=== PATIENT | female | born 1960 | race Caucasian/White ===

== ENCOUNTER 2017-01-03 23:27 | Emergency (ER) | payer BC ==
[2017-01-03 23:51] VITALS: BP 190/121
[2017-01-03] MEDS ORDERED: diphenhydrAMINE 50 MG Cap PO ONE (23:58)
--- NOTE | 2017-01-04 00:02 | EDM.PDOC ---
ED HPI GENERAL MEDICAL PROBLEM - General Chief Complaint: Allergic Reaction Stated Complaint: REACTION TO ANTIBIOTIC Time Seen by Provider: 01/03/17 23:53 - History of Present Illness INITIAL COMMENTS - FREE TEXT/NARRATIVE: HISTORY AND PHYSICAL: History of present illness: The patient is a 56-year-old female who presents with feeling flushed in the face after starting Keflex today for a UTI. The patient says she has had history of UTIs and self diagnosed herself and her daughter who is a physician called in a prescription for the Keflex today. She started taking the antibiotics today. She does not have a rash or itching she has no shortness of breath no swelling but she was concerned about the flushing being an early reaction. She took no medications for the flushing prior to coming to the ER Review of systems: As per history of present illness and below otherwise all systems reviewed and negative. Past medical history: As per history of present illness and as reviewed below otherwise noncontributory. Surgical history: As per history of present illness and as reviewed below otherwise noncontributory. Social history: No reported history of drug or alcohol abuse. Family history: As per history of present illness and as reviewed below otherwise noncontributory. Physical exam: Gen.: Well-developed well-nourished female who speaks clearly and easily in the ED and vital signs have been reviewed by me. She seems somewhat anxious in the room. HEENT: Atraumatic, normocephalic, pupils reactive, negative for conjunctival pallor or scleral icterus, mucous membranes moist, throat clear, neck supple, nontender, trachea midline. No facial swelling or oropharyngeal swelling is appreciated Lungs: Clear to auscultation, breath sounds equal bilaterally, chest nontender. Heart: S1S2, regular rate and rhythm no overt murmurs Abdomen: Soft, nondistended, nontender. NABS Skin: No evidence of any rashes or lesions are seen and turgor is normal. No urticaria is appreciated Genitourinary: Deferred. Rectal: Deferred. Extremities: Atraumatic, negative for cords or calf pain. Neurovascular unremarkable. Neuro: Awake, alert, oriented. Cranial nerves II through XII unremarkable. Cerebellum unremarkable. Motor and sensory unremarkable throughout. Exam nonfocal. Diagnostics: [] Therapeutics: Benadryl I discussed with the patient that her experienced flushing is not truly an allergic reaction but I did offer to change her antibiotics which she is declining at this time. I recommended taking Benadryl for the next 24 hours and if the symptoms worsen to return to the ER for further treatment. Impression: Facial flushing Definitive disposition and diagnosis as appropriate pending reevaluation and review of above. - Related Data Allergies Allergy/AdvReac Type Severity Reaction Status Date / Time caffeine Allergy Tachycardia Verified 03/17/16 11:58 codeine Allergy Tachycardia Verified 03/17/16 11:58 Seasonal allergies Allergy Other Uncoded 03/17/16 11:58 Home Meds: Home Meds Metoprolol Succinate 1 tab PO BEDTIME 03/17/16 [History] amLODIPine [Norvasc] 1 tab PO DAILY 03/17/16 [History] Cephalexin [IJP: Cephalexin] 500 mg PO .EVERY 8 HOURS 01/03/17 [History] Sertraline [Zoloft] 50 mg PO DAILY 01/03/17 [History] Past Medical History HEENT History: Reports: Allergic Rhinitis, Other (See Below) Other HEENT History: History of ringing in ears and "rapid popping/rare but at times" Cardiovascular History: Reports: Hypertension Respiratory History: Reports: None Gastrointestinal History: Reports: GERD, Other (See Below) Other Gastrointestinal History: Heartburn Genitourinary History: Reports: UTI, Recurrent Other Genitourinary History: hx: UTI's [employer] History: Reports: Dysfunctional Uterine Bleeding Musculoskeletal History: Reports: None Neurological History: Reports: Other (See Below) Other Neuro History: Headaches from time to time 'ususally related to sinus related allergy response" Psychiatric History: Reports: Anxiety, Depression Endocrine/Metabolic History: Reports: Obesity/BMI 30+ Hematologic History: Reports: Iron Deficiency - Past Surgical History HEENT Surgical History: Reports: Cataract Surgery, Oral Surgery, Retinal - History Comment History Comment: etoh "1x a year" Social & Family History - Tobacco Use Smoking Status *Q: Never Smoker Second Hand Smoke Exposure: No - Caffeine Use Caffeine Use: Reports: None - Recreational Drug Use Recreational Drug Use: No Drug Use in Last 12 Months: No ED ROS ALLERGIC REACTION - Review of Systems Review Of Systems: ROS reveals no pertinent complaints other than HPI. ED EXAM GENERAL NO PERIP PULSE - Physical Exam Exam: See Below (See dictation) Course - Vital Signs Last Recorded V/S: Last Vital Signs Temp 36.9 C 01/03/17 23:49 Pulse 99 01/03/17 23:49 Resp 18 01/03/17 23:49 BP 190/121 H 01/03/17 23:49 Pulse Ox 98 01/03/17 23:49 - Orders/Labs/Meds Orders: Active Orders 24 hr Category Date Time Status diphenhydrAMINE [Benadryl] Med 01/03/17 23:58 Once 50 mg PO ONETIME ONE Departure - Departure Time of Disposition: 00:01 Disposition: Home, Self-Care 01 Condition: Good Clinical Impression: Facial flushing - Discharge Information Additional Instructions: The following information is given to patients seen in the emergency department who are being discharged to home. This information is to outline your options for follow-up care. We provide all patients seen in our emergency department with a follow-up referral. The need for follow-up, as well as the timing and circumstances, are variable depending upon the specifics of your emergency department visit. If you don't have a primary care physician on staff, we will provide you with a referral. We always advise you to contact your personal physician following an emergency department visit to inform them of the circumstance of the visit and for follow-up with them and/or the need for any referrals to a consulting specialist. The emergency department will also refer you to a specialist when appropriate. This referral assures that you have the opportunity for followup care with a specialist. All of these measure are taken in an effort to provide you with optimal care, which includes your followup. Under all circumstances we always encourage you to contact your private physician who remains a resource for coordinating your care. When calling for followup care, please make the office aware that this follow-up is from your recent emergency room visit. If for any reason you are refused follow-up, please contact the [facility] emergency department at and ask to speak to the emergency department charge nurse. [facility] [address] [place] [address] [facility] Primary care- Internal Medicine and Family [facility] [address] [place] [id number] Continue your antibiotics and to return to ER as needed as discussed. Take Benadryl for the next 24 hours. Please call and follow-up with your provider at the clinic or one of our physicians and return here as you need. - My Orders Last 24 Hours: My Active Orders 01/03/17 23:58 diphenhydrAMINE [Benadryl] 50 mg PO ONETIME ONE - Assessment/Plan Last 24 Hours: My Active Orders 01/03/17 23:58 diphenhydrAMINE [Benadryl] 50 mg PO ONETIME ONE
== END 2017-01-04 00:36 | disposition home or self-care (01) ==
LOC: MW.ED 23:27
DX: R23.2 Flushing (principal); I10 Essential (primary) hypertension; K21.9 Gastro-esophageal reflux disease without esophagitis; F41.9 Anxiety disorder, unspecified; F32.9 Major depressive disorder, single episode, unspecified; E66.9 Obesity, unspecified; Z87.440 Personal history of urinary (tract) infections; Z79.899 Other long term (current) drug therapy; Z88.5 Allergy status to narcotic agent; Z91.09 Other allergy status, other than to drugs and biological substances; Z68.41 Body mass index [BMI] 40.0-44.9, adult
CPT/HCPCS: 99283; A9270; 99282